=== PATIENT | male | born 1940 | race Caucasian/White ===

== ENCOUNTER 2017-01-15 15:14 | Emergency (ER) | payer MEDICARE, OTHER ==
[~2017-01-15 15:14] MED LIST: *UNABLE3; ACETAMINOPHEN PO; ALLEGRA180 PO; AMLODIPINE PO; ASAB PO; ASPIRIN PO; ATORVASTATIN PO; B12250T PO; CEFT5 PO; CYANOCOBALAMIN PO; DRISDOL50000 UNT PO; ERGOCALCIFEROL; FLOMAX4 PO; FLONASE NAS; FLUOXETINE PO; GLUCPH PO; HUMULIN SC; HYDROCHLOROTHIAZIDE; HYDROCHLOROTHIAZIDE PO; INSNOV7030 SC; KEPPRA500 PO; KEPPRA750 MG PO; L20 PO; LIPITOR10 PO; LISINOPRIL PO; LISINOPRIL40 MG PO; LOP25 PO; METFORMIN PO; METOPROLOL PO; MONODOX50 MG PO; NIZORSHAM TOP; NORV25 PO; NORV5 PO; OMEPRAZOLE; OMEPRAZOLE PO; PRILO PO; PROVENTSOL INH; PROVHFA PO; PROZ10 PO; PROZAC PO; RX CREAM TOP; SILVADENE1 % TOP; T PO; UROXATRAL PO; VITD PO; ZYRTEC ALLGY10 MG PO
[2017-01-15 17:47] LABS: BASOPHILS 0.1 %; BASOPHILS ABSOLUTE 0.01 10/3/uL (0.0-0.16); EOSINOPHILS ABSOLUTE 0.39 10/3/uL (0.0-0.53); HEMATOCRIT 42.4 % (40.0-51.0); HEMOGLOBIN 14.4 g/dL (13.6-17.8); IMMATURE GRANULOCYTES 0.4 %; IMMATURE GRANULOCYTES ABSOLUTE 0.04 10/3/uL (0.0-0.11); LYMPHOCYTES 25.8 %; LYMPHOCYTES ABSOLUTE 2.53 10/3/uL (0.67-4.30); MEAN CORPUSCULAR HEMOGLOB 31.8 pg (26.0-34.0); MEAN PLATELET VOLUME 12.3 fL (9.2-13.0); MONOCYTES 6.4 %; MONOCYTES ABSOLUTE 0.63 10/3/uL (0.21-1.20); NEUTROPHILS 63.3 %; NEUTROPHILS ABSOLUTE 6.19 10/3/uL (2.02-8.40); PLATELET COUNT 166 10/3/uL (150-400); RBC DISTRIBUTION WIDTH 13.1 % (12.0-16.0); RED CELL COUNT 4.53 10/6/uL (4.7-6.1); WHITE BLOOD CELLS 9.8 10/3/uL (4.5-10.5)
[2017-01-15 17:48] LABS: MANUAL DIFF NO %; MEAN CORPUSCULAR VOLUME 93.6 fL (80-100)
[2017-01-15 17:50] LABS: ASCORBIC ACID (UR NOT ORDER) NEG (NEG); BILIRUBIN, URINE NEGATIVE (NEG); ER URINALYSIS TAT 0 Hrs 09 Mins; KETONE, URINE NEGATIVE (NEG); LEUKOCYTE ESTERASE(NOT OR NEG (NEG); NITRITE (URINE) NEG (NEG); WBC (NOT ORDERED) (RFLEX) 1 (0-5)
[2017-01-15 18:03] LABS: A/G RATIO 0.8 (0.7-1.9); BUN (BLOOD UREA NITROGEN) 18 MG/DL (6-23); CALCIUM, SERUM 8.1 MG/DL (8.5-10.4); CHLORIDE, SERUM 106 MMOL/L (96-112); CO2 (CARBON DIOXIDE) 28 MMOL/L (24-34); CREATININE 1.17 MG/DL (0.70-1.30); GFR AFRICAN AMERICAN 70 ML/MIN (>=60); GFR NON AFRICAN AMERICAN 60 ML/MIN (>=60); GLOBULIN 3.6 G/DL (2.5-4.1); GLUCOSE, SERUM 145 MG/DL (60-99); SGOT(AST) 13 U/L (5-40); SGPT(ALT) 27 U/L (5-65); SODIUM, SERUM 142 MMOL/L (135-148); TOTAL PROTEIN 6.6 G/DL (6.0-8.5)
[2017-01-15 18:07] LABS: ALKALINE PHOSPHATASE 174 U/L (45-117); TOTAL BILIRUBIN 0.9 MG/DL (0-1.2)
== END 2017-01-15 20:25 | disposition home or self-care (01) ==
LOC: ER 15:14
PROVIDERS: Nurse Practitioner
DX: R10.9 Unspecified abdominal pain (principal); I10 Essential (primary) hypertension; E11.9 Type 2 diabetes mellitus without complications; Z86.73 Personal history of transient ischemic attack (TIA), and cerebral infarction without residual deficits; Z87.891 Personal history of nicotine dependence; Z79.4 Long term (current) use of insulin; Z79.899 Other long term (current) drug therapy; Z79.82 Long term (current) use of aspirin
CPT/HCPCS: 74176; 80053; 81001; 83690; 85025; 96374; 99285; J2405